=== PATIENT | female | born 1985 | race Caucasian/White ===

== ENCOUNTER 2017-09-12 03:30 | Outpatient (CLI) | payer SELFPAY, OTHER | END 2017-09-12 03:31 | disposition home or self-care (01) | LOC: BICMRI 03:30 | PROVIDERS: ATTEND Family Medicine | DX: M54.2 Cervicalgia (principal) | CPT/HCPCS: 72141 ==

== ENCOUNTER 2018-03-01 11:29 | Outpatient (CLI) | payer BC | END 2018-03-01 11:30 | disposition home or self-care (01) | LOC: BICRAD 11:29 | PROVIDERS: ATTEND Physician Assistant Medical | DX: J45.909 Unspecified asthma, uncomplicated (principal) | CPT/HCPCS: 70220; 71046 ==

== ENCOUNTER 2019-08-21 08:45 | Outpatient (CLI) | payer BC ==
--- NOTE | 2019-08-21 12:05 | CT ---
CT ABDOMEN AND PELVIS WITH AND WITHOUT IV CONTRAST: (CT ENTEROGRAPHY) DATE: 08/21/19 HISTORY: 34-year-old female with irritable bowel syndrome, anemia, stomach cramping, nausea, diarrhea, and con stipation. FINDINGS: The lung bases are clear. The liver, spleen, pancreas, adrenal glands, and kidneys are normal. No calcified gallstones are seen . No free air, free fluid, or lymphadenopathy seen in the abdomen or pelvis. Uterus and ovaries are present. There is a 3.0 cm cyst in the left ovary. There is thickening and increased enhancement of a short segment of the wall of the distal small logan l/ileum, with mild dilatation of a short segment of the bowel loop proximal to this region of wall th ickening and enhancement. The remainder of the small bowel loops are of normal caliber. The aorta is of normal caliber. Osseous structures are unremarkable. IMPRESSION: Short segment wall thickening and abnormal enhancement involving loop of distal small bowel. This is a nonspecific finding and may be due to infective, inflammatory, infiltrative, or neoplastic etiologi es. POS: [facility]
[2019-08-21] MEDS ORDERED: Iopamidol 370 76% 100 ML VIAL ONE (13:51)
== END 2019-08-21 08:46 | disposition home or self-care (01) ==
LOC: CT 08:45
PROVIDERS: ATTEND Internal Medicine Gastroenterology
DX: K58.9 Irritable bowel syndrome, unspecified (principal); D50.9 Iron deficiency anemia, unspecified
CPT/HCPCS: 74178; Q9967